=== PATIENT | male | born 1990 | race Caucasian/White ===

== ENCOUNTER 2023-03-26 15:41 | Emergency (ER) | payer SELFPAY ==
--- OUTSIDE RECORDS SUMMARY | 2023-03-26 15:44 | XMS REPORT | Continuity of Care Document ---
:1990 Author Organization [facility] t Address [address] [place] [address] [place] [id number] Care Team Providers Name Role Phone NO, PCP Primary Care Physician Unavailable Simón RUBY, Muna Fernandez Attending Clinician RORY FOUNTAIN Attending Clinician Unavailable Problems Condition Condition Condition Status Onset Resolution Last Treating Co mments Source Name Details Category Date Date Treatment Clinician Date Problem Condition Active [facility] Allergies, Adverse Reactions, Alerts This patient has no known allergies or adverse reactions. Social History Social Habit Start Date Stop Date Quantity Comments Source Exposure to Not sure Jamari acevedo SARS-CoV-2 (event) History SDOH Jamari Rodriguez ld Alcohol Frequency History SDOH Jamari Rodriguez ld Alcohol Std Drinks History SDOH Jamari singh Alcohol Binge Alcohol Comment 2021-05-11 2021-05-11 occassionally Jamari Ordaz 00:00:00 00:00:00 Tobacco use and 2021-05-11 2021-05-11 Smokeless tobacco El Ordaz exposure 00:00:00 00:00:00 non-user Alcohol intake 2021-05-11 2021-05-11 Current drinker of El anabellaamie Orlin 00:00:00 00:00:00 alcohol (finding) Sex [birth year] Jamari lam 00:00:00 00:00:00 Smoking Status Start Date Stop Date Source Never smoked tobacco Jamari keller Medications Ordered Filled Start Stop Current Ordering Indication Dosage Frequency Signature Comments Components Source Medication Medication Date Date Medication? Clinician (SIG) Name Name CLINDAMYCIN 2020-07 Yes [id number] Apply thin Jamari PHOSPHATE,T - layer BID Sey bold OPICAL, 1 % 00:00: to apply 00 affected externally areas on Lotion chest PRN for flares Hydrocortis 2020-07- No [id number] Apply thin Jamari one 2.5 % 07-11 layer BID Seyb old apply 00:00: 05:59 to externally 00 :00 affected Ointment areas, 5 days on, 2 days off PRN for flares Vital Signs Vital Name Observation Time Observation Value Comments Source Weight 2019-11-16 12:39:00 240 [lb_av] [facility] Patient Medical Center BMI (Body Mass 2019-11-16 12:39:00 33.5 kg/m2 [facility] Index) Patient Medical Center Procedures Procedure Date / Time Performed Performing Clinician Huseyin e Computed tomography of 2019-11-16 00:00:[address] [facility] Fiona mccormack [facility] abdomen and pelvis with Patient Medical contrast Center Plan of Care Planned Activity Planned Date Details Comments Source Instructions Abdominal Pain - Adult [facility] Fiona mccormack [facility] Patient [facility] Encounters Start End Encounter Admission Attending Care Care Encounter Source Date/Time Date/Time Type Type Clinicians Facility Department ID 2021-05-11 2021-05-11 Office [facility] [id number] Jamari 11:04:51 11:24:51 Visit Muna CONWAY [id number] Se genaro [id number] 2021-04-29 2021-04-29 Outpatient JAMARI FOUNTAIN [id number] Jamari 08:45:00 08:45:00 RORY acevedo 2019-11-16 2019-11-16 Departed [facility] [id number] 12:26:00 13:49:00 Emergency Patients 72 Maxime es Room [facility] 2019-11-16 2019-11-16 Emergency [facility] [id number] 12:26:00 12:26:00 -[id number] [facility] 2017-05-25 2017-05-26 Outpatient [facility] [id number] Pe[address] 00:00:00 00:00:00 [facility] Results This patient has no known results.
[2023-03-26 16:06] LABS: Absolute Lymphocytes (CBC) 0.6 K/uL (0.7-4.9); MCV 98.4 fL (80-100); MPV 8.7 fL (7.6-11.3); Platelets 127 thou/uL (152-406); RBC Red Blood Cell Count 4.67 M/uL (4.33-5.43)
[2023-03-26 16:13] LABS: Protime INR 1.11
[2023-03-26] MEDS ORDERED: NA CHLORIDE 0.9% 1,000 ML ONE ×2 (16:13→17:17)
[2023-03-26] MEDS ORDERED: NA CHLORIDE 0.9% 100 ML ONE ×2 (16:13→19:27)
[2023-03-26] MEDS ORDERED: LEVETIRACETAM 500 MG/5 ML VIAL IV ONE (16:13)
[2023-03-26 16:25] LABS: ALT/SGPT 489 U/L (16-61); AST/SGOT 387 U/L (15-37); Albumin 4.2 g/dL (3.4-5.0); Alkaline Phosphatase 82 U/L (45-117); BUN Blood Urea Nitrogen 15 mg/dL (7-18); Bicarbonate 27 mEq/L (21-32); Bilirubin Direct 0.4 mg/dL (0-0.2); Bilirubin Indirect, Calculated 0.8 mg/dL (0.2-0.8); Bilirubin Total 1.2 mg/dL (0.2-1.0); Glomerular Filtration Rate 68 ml/min (=/>90); Glucose Level 140 mg/dL (74-106); Potassium 2.8 mEq/L (3.5-5.1); Protein, Total 8.2 g/dL (6.4-8.2); Sodium Level 131 mEq/L (136-145)
[2023-03-26] MEDS ORDERED: ALBUTEROL 2.5 MG/3 ML NEB SOL ONE (16:38)
[2023-03-26] MEDS ORDERED: IPRATROPIUM BROM 0.5MG/2.5ML ONE (16:40)
--- NOTE | 2023-03-26 16:47 | RAD REPORT ---
EXAM DESCRIPTION: Tania Single View03/26/2023 4:12 pm CLINICAL HISTORY: sob COMPARISON: none FINDINGS: The lungs appear clear of acute infiltrate. The heart is normal size IMPRESSION: No acute abnormalities displayed
[2023-03-26 17:00] LABS: Troponin High Sensitivity 4.4 pg/mL (<58.9)
[2023-03-26] MEDS ORDERED: POTASSIUM 25 MEQ EFFERV TAB ONE (17:17)
--- NOTE | 2023-03-26 17:46 | RAD REPORT ---
EXAM DESCRIPTION: CT - Chest For Pe Angio - 03/26/2023 5:28 pm CLINICAL HISTORY: sob COMPARISON: None. TECHNIQUE: Dynamically enhanced axial 3 mm thick images of the chest were obtained during administra tion of 95 mL Isovue 370 IV contrast. Coronal and oblique reconstruction images were generated and re viewed. Exam utilizes a protocol for optimal evaluation of pulmonary arterial tree. Maximum intensity projections 3D imaging was utilized All CT scans are performed using dose optimization technique as appropriate and may include automated exposure control or mA/KV adjustment according to patient size. FINDINGS: A pulmonary embolus is not seen. A thoracic aortic aneurysm is not noted. A pleural effusion is not seen. A pericardial effusion is not seen. Mild to moderate tree-in-bud opacities right upper lobe Marked fatty liver. Hepatomegaly IMPRESSION: Negative for a pulmonary embolism. Mild to moderate tree-in-bud opacities right upper lobe probably an atypical infection
[2023-03-26 18:02] LABS: Specific Gravity 1.016 (1.005-1.030); Urine Bacteria None Seen /HPF (<20); Urine Bilirubin NEGATIVE (Negative); Urine Blood Negative (Negative); Urine Clarity Clear (Clear); Urine Color Light-Yellow (Yellow); Urine Glucose NEGATIVE (Negative); Urine Mucus Slight /HPF (None Seen); Urine Protein TRACE (Negative); Urine RBC <5 /HPF (None Seen); Urine Urobilinogen Normal (Normal)
[2023-03-26 18:14] LABS: Barbiturates NEGATIVE (NEGATIVE); Benzodiazepines NEGATIVE (NEGATIVE); Cocaine NEGATIVE (NEGATIVE); METHAMPHETAM NEGATIVE (NEGATIVE); Methadone NEGATIVE (NEGATIVE); Opiates NEGATIVE (NEGATIVE); Phencyclidine NEGATIVE (NEGATIVE); THC Cannibis POSITIVE (NEGATIVE)
[2023-03-26] MEDS ORDERED: AZITHROMYCIN 250 MG TAB ONE (19:27)
[2023-03-26] MEDS ORDERED: CEFTRIAXONE 2000 MG/VIAL ONE (19:27)
--- NOTE | 2023-03-26 19:36 | ER ---
Nurse's Notes [facility] Name: Yevgeniy Cheney Age: 32 yrs Sex: Male : 1990 Arrival Date: 03/26/2023 Time: 15:41 Bed 2 Private MD: Diagnosis: Other seizures;Other pneumonia, unspecified organism;Hypokalemia Presentation: 03/26 15:45 Chief complaint: EMS states: seizure lasting approximately 2-3 minutes, witnessed by aa5 friends. EMS reports pt was awake and confused upon their arrival, EMS reports pt's friends reported pt vomited during seizure. Pt currently A\T\O x 4. EMS reports administering Zofran 4mg and report FSBG 130. Pt reports he drinks 6-12 beers a day and last drink was around midnight. 15:45 Coronavirus screen: At this time, the client does not indicate any symptoms associated aa5 with coronavirus-19. Ebola Screen: Patient denies travel to an Ebola-affected area in the 21 days before illness onset. Initial Sepsis Screen: Does the patient meet any 2 criteria? HR > 90 bpm. Does the patient have a suspected source of infection? No. Patient's initial sepsis screen is negative. Risk Assessment: Do you want to hurt yourself or someone else? Patient reports no desire to harm self or others. Onset of symptoms was March 26, 2023. 15:45 Acuity: KENZIE 3 aa5 15:45 Method Of Arrival: EMS: [facility] aa5 Historical: - Allergies: 15:45 No Known Allergies; aa5 - Home Meds: 15:45 levetiracetam oral [Active]; aa5 - PMHx: 15:45 Hypertensive disorder; Seizure; Asthma; aa5 - Immunization history:: Adult Immunizations not up to date. - Social history:: Patient uses alcohol, on a daily basis. 6-12 beers a day . Screenin:10 [facility] ED Fall Risk Assessment (Adult) History of falling in the last 3 months, aa5 including since admission No falls in past 3 months (0 pts) Confusion or Disorientation No (0 pts) Intoxicated or Sedated Yes (3 pts) Impaired Gait Yes (1 pt) Mobility Assist Device Used No (0 pt) Altered Elimination No (0 pt) Score/Fall Risk Level 3 or more points = High Risk Oriented to surroundings, Maintained a safe environment, Educated pt \T\ family on fall prevention, incl call for assistance when getting out of bed. Abuse screen: Denies threats or abuse. Nutritional screening: No deficits noted. Tuberculosis screening: No symptoms or risk factors identified. Assessment: 15:45 General: Appears comfortable, Behavior is calm, cooperative, Smells of alcohol. Pain: aa5 Denies pain. Neuro: Level of Consciousness is awake, alert, obeys commands, Oriented to person, place, time, situation, Director Of Informatics are equal bilaterally Moves all extremities. Speech is normal, Facial symmetry appears normal, Pupils are PERRLA. Cardiovascular: Heart tones S1 S2 present Rhythm is regular. Respiratory: Airway is patent Respiratory effort is even, unlabored, Respiratory pattern is regular, symmetrical, Breath sounds are clear bilaterally. GI: Abdomen is round non-distended, Bowel sounds present X 4 quads. Abd is soft and non tender X 4 quads. : No signs and/or symptoms were reported regarding the genitourinary system. EENT: No signs and/or symptoms were reported regarding the EENT system. Derm: Skin is pink, warm \T\ dry. Musculoskeletal: Range of motion: intact in all extremities. 16:07 Reassessment: Patient is alert, oriented x 3, equal unlabored respirations, skin aa5 warm/dry/pink. 17:18 Reassessment: Patient is alert, oriented x 3, equal unlabored respirations, skin aa5 warm/dry/pink. Pt c/o feeling cold, noted to be shaking, provided extra warm blankets to pt. Pt now to CT scan. . 18:40 Reassessment: Patient is alert, oriented x 3, equal unlabored respirations, skin aa5 warm/dry/pink. 18:40 General: Appears comfortable, Behavior is calm, cooperative. aa5 19:24 General: Appears in no apparent distress. Behavior is cooperative, anxious. Pain: iw Denies pain. Neuro: Level of Consciousness is awake, alert, obeys commands, Oriented to person, place, time, situation, Moves all extremities. Full function Seizure activity reported prior to arrival. Cardiovascular: Patient's skin is warm and dry. Rhythm is sinus tachycardia. GI: Abdomen is non-distended, Reports nausea, vomiting, Patient currently denies abdominal pain. Derm: Skin is intact, Skin is normal. Musculoskeletal: Range of motion: intact in all extremities. 19:57 Reassessment: Patient appears in no apparent distress at this time. Patient and/or iw family updated on plan of care and expected duration. Pain level reassessed. Patient is alert, oriented x 3, equal unlabored respirations, skin warm/dry/pink. pt waiting for ride Patient states feeling better. Patient states symptoms have improved. Vital Signs: 15:45 BP 134 / 89; Pulse 126; Resp 20 S; Temp 98.4(O); Pulse Ox 94% on R/A; aa5 15:45 Weight 92.99 kg (R); Height 5 ft. 11 in. (R); aa5 16:00 Pulse Ox 87% on R/A; aa5 16:02 Pulse Ox 97% on 2 lpm NC; aa5 16:07 BP 136 / 92; Pulse 106; Resp 18 S; Pulse Ox 96% on 2 lpm NC; aa5 17:15 BP 145 / 103; Pulse 106; Resp 20 S; Pulse Ox 97% on R/A; aa5 18:02 BP 132 / 100; Pulse 111; Resp 20 S; Temp 98.7(O); Pulse Ox 97% on R/A; aa5 18:08 BP 133 / 95; Pulse 110; Resp 19 S; Pulse Ox 97% on R/A; aa5 19:27 BP 138 / 93; Pulse 108; Resp 19; Temp 97.9; Pulse Ox 100% on R/A; Pain 0/10; iw 19:58 BP 134 / 92; Pulse 103; Resp 18; Pulse Ox 100% on R/A; iw 15:45 Body Mass Index 28.59 (92.99 kg, 180.34 cm) aa5 19:27 Pain Scale: Adult iw 16:00 Pt's O2 fluctuating between 87% RA and 92% RA, PA was notified. aa5 Vanzant Coma Score: 15:45 Eye Response: spontaneous(4). Motor Response: obeys commands(6). Verbal Response: aa5 oriented(5). Total: 15. ED Course: 15:45 Patient arrived in ED. aa5 15:45 [facility] Watt [facility]. cp 15:45 Zelalem Michaud MD is Attending Physician. cp 15:45 Arm band placed on Patient placed in an exam room, on a stretcher. aa5 15:45 Seizure precautions initiated. aa5 15:49 Triage completed. aa5 15:50 Carmelita Tellez, FRANCISCO is Primary Nurse. aa5 15:57 Initial lab(s) drawn, by me, sent to lab. Inserted saline lock: 20 gauge in left aa5 antecubital area, using aseptic technique. Blood collected. 16:08 EKG done, by ED staff, reviewed by Zelalem ROMO. aa5 16:14 XRAY Chest (1 view) In Process Unspecified. EDMS 17:30 CT Chest For PE Angio In Process Unspecified. EDMS 17:56 Urine collected: sent to lab. aa5 18:40 First set of blood cultures drawn by me. aa5 18:47 Lactate drawn and sent to lab. aa5 18:55 Second set of blood cultures drawn by me. aa5 19:00 Report given to FRANCISCO Borrego and Mauricio Vuong RN. aa5 19:58 No provider procedures requiring assistance completed. IV discontinued, intact, iw bleeding controlled, No redness/swelling at site. Pressure dressing applied. Administered Medications: 16:06 Drug: NS 0.9% IV 1000 ml Route: IV; Rate: 1 bolus; Site: left antecubital; aa5 16:06 Not Given (Patient Refused): Ativan IVP 1 mg IVP once aa5 16:06 Drug: Keppra IV 1000 mg Route: IV; Rate: calculated rate; Site: left antecubital; aa5 16:31 Follow up: IV Status: Completed infusion aa5 16:33 Drug: DuoNeb Nebulize (2.5 mg - 0.5 mg) 3 ml Route: Nebulizer; rs5 19:59 Follow up: Response: No adverse reaction iw 17:15 Drug: Potassium PO Effervescent Tablet 50 mEq Route: PO; aa5 17:58 Follow up: Response: No adverse reaction aa5 17:15 Drug: NS 0.9% IV 1000 ml Route: IV; Rate: 1 bolus; Site: left antecubital; aa5 19:24 Drug: Rocephin IV 2 grams Route: IV; Rate: calculated rate; Site: left antecubital; iw 19:24 Drug: AZITHromycin PO 500 mg Route: PO; iw 19:58 Follow up: Response: No adverse reaction iw Output: 17:57 Urine: 600ml (Voided); Total: 600ml. aa5 Outcome: 19:35 Discharge ordered by . anna 20:24 Patient left the ED. iw Signatures: Dispatcher [employer] Salima Carrasco RN RN iw Carmelita Tellez RN RN aa5 Zelalem Watt PA PA cp Sotelo, Ricky RN RN rs5 Corrections: (The following items were deleted from the chart) 15:58 15:45 Chief complaint: EMS states: seizure lasting approximately 2-3 minutes, witnessed aa5 by friends. EMS reports pt was awake and confused upon their arrival. Pt currently A\T\O x 4. EMS reports administering Zofran 4mg and report FSBG 130. Pt reports he drinks 6-12 beers a day and last drink was around midnight. aa5 16:12 15:45 General: Appears comfortable, Behavior is calm, cooperative, aa5 aa5 19:58 19:57 Reassessment: Patient appears in no apparent distress at this time. Patient iw and/or family updated on plan of care and expected duration. Pain level reassessed. Patient is alert, oriented x 3, equal unlabored respirations, skin warm/dry/pink. Patient states feeling better. Patient states symptoms have improved. iw
--- NOTE | 2023-03-26 19:36 | EDPHYS ---
Physician Documentation [facility] Name: Yevgeniy Cheney Age: 32 yrs Sex: Male : 1990 Arrival Date: 03/26/2023 Time: 15:41 Bed 2 Private MD: TORO Physician Zelalem Michaud HPI: 03/26 15:55 This 32 yrs old Male presents to ER via EMS with complaints of Seizure. cp 15:55 The patient presents after having a single isolated seizure, that lasted an unknown cp period of time, the episode(s) was witnessed, by a friend. 15:55 Character of seizure(s): Loss of consciousness: the patient experienced loss of cp consciousness, Incontinence: none. Seizure onset: today. Seizure Hx: Original onset: April of last year, Cause: alcohol abuse history, Seizure medications: Keppra. Associated injury: The patient did not suffer any apparent associated injury. EMS care: none. Current symptoms: confusion. patient admits to not taking prescribed Keppra 500 mg today and that he usually drinks daily with last drink yesterday. Historical: - Allergies: 15:45 No Known Allergies; aa5 - Home Meds: 15:45 levetiracetam oral [Active]; aa5 - PMHx: 15:45 Hypertensive disorder; Seizure; Asthma; aa5 - Immunization history:: Adult Immunizations not up to date. - Social history:: Patient uses alcohol, on a daily basis. 6-12 beers a day . ROS: 16:00 Constitutional: Negative for body aches, chills, fever, poor PO intake. cp 16:00 Neuro: Positive for history of seizure. cp 16:00 Eyes: Negative for injury, pain, redness, and discharge. cp 16:00 ENT: Negative for drainage from ear(s), ear pain, sore throat, difficulty swallowing, difficulty handling secretions. 16:00 Cardiovascular: Negative for chest pain. 16:00 Respiratory: Negative for cough, wheezing. 16:00 Abdomen/GI: Positive for nausea and vomiting, Negative for diarrhea, constipation. 16:00 : Negative for urinary symptoms. 16:00 All other systems are negative. Exam: 16:05 Constitutional: The patient appears in no acute distress, alert, awake, cp non-diaphoretic, non-toxic, well developed, well nourished. 16:05 Head/Face: Normocephalic, atraumatic. cp 16:05 Eyes: Periorbital structures: appear normal, Conjunctiva: normal, no exudate, no injection, Sclera: no appreciated abnormality, Lids and lashes: appear normal, bilaterally. 16:05 ENT: External ear(s): are unremarkable, Nose: is normal, Mouth: Lips: moist, Oral mucosa: pink and intact, moist, Posterior pharynx: is normal, airway is patent, no erythema, no exudate. 16:05 Neck: C-spine: vertebral tenderness, is not appreciated, crepitus, is not appreciated, ROM/movement: is normal, is supple, without pain, no range of motions limitations. 16:05 Chest/axilla: Inspection: normal, Palpation: is normal, no crepitus, no tenderness. 16:05 Cardiovascular: Rate: tachycardic, Rhythm: regular, Edema: is not appreciated, JVD: is not appreciated. 16:05 Respiratory: the patient does not display signs of respiratory distress, Respirations: normal, no use of accessory muscles, no retractions, labored breathing, is not present, Breath sounds: are clear throughout, no decreased breath sounds, no stridor, no wheezing. 16:05 Abdomen/GI: Inspection: abdomen appears normal, Bowel sounds: active, all quadrants, Palpation: soft, in all quadrants, nontender, in all quadrants, rebound tenderness, is not appreciated. 16:05 Neuro: Orientation: to person, place \T\ time. Mentation: able to follow commands, slow to respond, Motor: moves all fours, strength is normal, Sensation: no obvious gross deficits. 16:12 ECG was reviewed by the Attending Physician. cp Vital Signs: 15:45 BP 134 / 89; Pulse 126; Resp 20 S; Temp 98.4(O); Pulse Ox 94% on R/A; aa5 15:45 Weight 92.99 kg (R); Height 5 ft. 11 in. (R); aa5 16:00 Pulse Ox 87% on R/A; aa5 16:02 Pulse Ox 97% on 2 lpm NC; aa5 16:07 BP 136 / 92; Pulse 106; Resp 18 S; Pulse Ox 96% on 2 lpm NC; aa5 17:15 BP 145 / 103; Pulse 106; Resp 20 S; Pulse Ox 97% on R/A; aa5 18:02 BP 132 / 100; Pulse 111; Resp 20 S; Temp 98.7(O); Pulse Ox 97% on R/A; aa5 18:08 BP 133 / 95; Pulse 110; Resp 19 S; Pulse Ox 97% on R/A; aa5 19:27 BP 138 / 93; Pulse 108; Resp 19; Temp 97.9; Pulse Ox 100% on R/A; Pain 0/10; iw 19:58 BP 134 / 92; Pulse 103; Resp 18; Pulse Ox 100% on R/A; iw 15:45 Body Mass Index 28.59 (92.99 kg, 180.34 cm) aa5 19:27 Pain Scale: Adult iw 16:00 Pt's O2 fluctuating between 87% RA and 92% RA, PA was notified. aa5 Bullard Coma Score: 15:45 Eye Response: spontaneous(4). Motor Response: obeys commands(6). Verbal Response: aa5 oriented(5). Total: 15. MDM: 15:45 Patient medically screened. cp 16:00 Differential diagnosis: drug overdose, cardiac arrhythmia, seizure, alcohol withdrawal, cp electrolyte abnormality. 19:35 Data reviewed: vital signs, nurses notes, lab test result(s), EKG, radiologic studies, cp CT scan, plain films. 19:35 Consideration of Admission/Observation Escalation of care including cp admission/observation considered. I considered the following discharge prescriptions or medication management in the emergency department Medications were administered in the Emergency Department. See MAR. Independent interpretation of the following test(s) in the Emergency Department EKG: See my EKG interpretation above. Test considered but Not performed: CT: abdomen/pelvis due to elevated liver enzymes, refused by patient at this time. Care significantly affected by the following chronic conditions: Hypertension. Counseling: I had a detailed discussion with the patient and/or guardian regarding the historical points, exam findings, and any diagnostic results supporting the discharge/admit diagnosis, lab results, radiology results, to return to the emergency department if symptoms worsen or persist or if there are any questions or concerns that arise at home. Response to treatment: the patient's symptoms have markedly improved after treatment, and as a result, I will discharge patient. 03/26 15:48 Order name: Acetaminophen; Complete Time: 16:34 cp / 15:48 Order name: Basic Metabolic Panel; Complete Time: 16:34 cp 03/26 16:35 Interpretation: Normal except: NA 131; K 2.8; CL 89; ANION GAP 17.8; GLUC 140; CRE cp 1.42; GFR 68. 09 15:48 Order name: CBC with Diff; Complete Time: 16:34 cp 16 17:13 Interpretation: Normal except: PLT 127; PALMA% 75.5; LYM% 13.0; LYMA 0.6. cp / 15:48 Order name: ETOH Level; Complete Time: 16:34 cp / 15:48 Order name: Hepatic Function; Complete Time: 16:34 cp / 17:54 Interpretation: Normal except: AST 387; ALT 489; BILIT 1.2; BILID 0.4; GLOB 4.0. cp / 15:48 Order name: PT-INR; Complete Time: 16:34 cp 03/26 15:48 Order name: Ptt, Activated; Complete Time: 16:34 cp 03/26 15:48 Order name: Salicylate; Complete Time: 17:03 cp 03/26 15:48 Order name: Urinalysis w/ reflexes; Complete Time: 18:25 cp 03/26 18:26 Interpretation: Normal except: UKET TRACE; UPROT TRACE; HYAL 5-10. cp / 15:48 Order name: Urine Drug Screen; Complete Time: 18:25 cp 03/26 18:25 Interpretation: Normal except: THC POSITIVE. 03/26 16:02 Order name: Influenza Screen (a \T\ B); Complete Time: 17:03 cp 03/26 16:02 Order name: COVID-19 SARS RT PCR; Complete Time: 17:03 cp 03/26 16:34 Order name: Troponin HS; Complete Time: 17:03 cp 03/26 16:34 Order name: BNP; Complete Time: 17:03 cp / 16:34 Order name: D-Dimer; Complete Time: 17:03 cp 03/26 18:28 Order name: Lactate w/ 2H reflex if indic. cp / 18:28 Order name: Blood Culture Adult (2) cp / 16:02 Order name: XRAY Chest (1 view); Complete Time: 17:03 cp 03/26 17:03 Order name: CT Chest For PE Angio; Complete Time: 17:51 cp 03/26 15:48 Order name: EKG; Complete Time: 15:49 cp 03/26 15:48 Order name: EKG - Nurse/Tech; Complete Time: 16:06 cp 03/26 15:48 Order name: IV Saline Lock; Complete Time: 15:59 cp 03/26 15:48 Order name: Labs collected and sent; Complete Time: 15:59 cp 03/26 15:48 Order name: Seizure Precautions; Complete Time: 15:50 cp 03/26 16:02 Order name: Oxygen Per Protocol; Complete Time: 16:06 cp EC:12 Rate is 102 beats/min. Rhythm is regular. SC interval is normal. QRS interval is cp prolonged at 104 msec. QT interval is normal. T waves are Inverted in lead aVR. Interpreted by me. Reviewed by me. Administered Medications: 16:06 Drug: NS 0.9% IV 1000 ml Route: IV; Rate: 1 bolus; Site: left antecubital; aa5 16:06 Not Given (Patient Refused): Ativan IVP 1 mg IVP once aa5 16:06 Drug: Keppra IV 1000 mg Route: IV; Rate: calculated rate; Site: left antecubital; aa5 16:31 Follow up: IV Status: Completed infusion aa5 16:33 Drug: DuoNeb Nebulize (2.5 mg - 0.5 mg) 3 ml Route: Nebulizer; rs5 19:59 Follow up: Response: No adverse reaction iw 17:15 Drug: Potassium PO Effervescent Tablet 50 mEq Route: PO; aa5 17:58 Follow up: Response: No adverse reaction aa5 17:15 Drug: NS 0.9% IV 1000 ml Route: IV; Rate: 1 bolus; Site: left antecubital; aa5 19:24 Drug: Rocephin IV 2 grams Route: IV; Rate: calculated rate; Site: left antecubital; iw 19:24 Drug: AZITHromycin PO 500 mg Route: PO; iw 19:58 Follow up: Response: No adverse reaction iw Disposition Summary: 03/26/23 19:35 Discharge Ordered Location: Home cp Problem: new cp Symptoms: have improved cp Condition: Stable cp Diagnosis - Other seizures cp - Other pneumonia, unspecified organism cp - Hypokalemia cp Followup: cp - With: Private Physician - When: 2 - 3 days - Reason: Recheck today's complaints Discharge Instructions: - Discharge Summary Sheet cp - Potassium Content of Foods cp - Community-Acquired Pneumonia, Adult cp - Seizure, Adult cp - Hypokalemia cp Forms: - Medication Reconciliation Form cp - Thank You Letter cp - Antibiotic Education cp - Prescription Opioid Use cp - Patient Portal Instructions cp - Leadership Thank You Letter cp Prescriptions: - Augmentin 875-125 mg Oral Tablet - take 1 tablet by ORAL route every 12 hours for 10 days; 20 tablet; Refills: 0, cp Product Selection Permitted - Potassium Chloride 10 mEq Oral capsule, extended release - take 2 tablet by ORAL route once daily for 3 days; 6 tablet; Refills: 0, cp Product Selection Permitted - Zithromax Z-Jack 250 mg Oral Tablet - take 1 tablet by ORAL route as directed for 5 days Day 1 - take two (2) tablets cp one time. Day 2, 3, 4 , 5 take one (1) tablet once daily.; 6 tablet; Refills: 0, Product Selection Permitted Signatures: Dispatcher [employer] EDMS Salima Barclay RN RN iw Carmelita Tellez RN RN aa5 Zelalem Watt PA PA cp Nabeel Garay, RN RN rs5 Corrections: (The following items were deleted from the chart) 15:50 15:48 Suicide Screening ([place]) ordered. cp aa5 16:28 16:20 The patient presents after having a single isolated seizure, that lasted an cp unknown period of time, the episode(s) was witnessed, by a friend, cp 16:28 16:20 This 32 yrs old Male presents to ER via EMS with complaints of Seizure. cp cp 17:29 17:13 Abdomen Pelvis W [id number].[id number] ordered. EDMS EDMS
[2023-03-26 20:56] VITALS: TEMP 97.9; O2SAT 100
[2023-03-26 20:58] VITALS: BP 134/92
--- NOTE | 2023-03-28 19:08 | EKG ---
Test Date: 2023-03-26 Test Time: 16:05:11 Belt Builder Helper: TANIKA MEASUREMENT RESULTS: Intervals: Rate: 102 MD: 154 QRSD: 104 QT: 344 QTc: 448 [place]: P: 76 MD: 154 QRS: 71 T: 22 INTERPRETIVE STATEMENTS: Sinus tachycardia Otherwise normal ECG No previous ECG available for comparison Electronically Signed On 03-28-23 19:05:27 CDT by Brett Tan
== END 2023-03-26 20:24 | disposition home or self-care (01) ==
LOC: ER 15:41
DX: R56.9 Unspecified convulsions (principal); J18.8 Other pneumonia, unspecified organism; E87.6 Hypokalemia; Z20.822 Contact with and (suspected) exposure to COVID-19
CPT/HCPCS: 36415; 71045; 71275; 80048; 80076; 80143; 80179; 80307; 81001; 82077; 83605; 83880; 84484; 85025; 85379; 85610; 85730; 87040; 87635; 87804; 93005; 94640; 96365; 96375; 99285; J0696; J1953; J7030; J7613; J7644; Q9967